=== PATIENT | female | born 1990 | race Caucasian/White ===

== ENCOUNTER 2017-09-15 13:13 | Emergency (ER) | payer BC ==
[2017-09-15 13:30] VITALS: BP 113/80
--- NOTE | 2017-09-15 15:00 | UC ---
Arslan Melton Alfonso, scribed for Zahida Hadley DO on 09/15/17 at 1405 . General HPI - HPI Summary HPI Summary: This patient is a 27 year old F presenting to [facility] with a chief complaint of abdominal pain, vomiting (a few times most days) and watery diarrhea (5 times each day) since 8 days ago. The patient rates the pain 8/10 in severity. Symptoms aggravated by changing position, eating and drinking more than small amounts. Symptoms alleviated by nothing. Patient reports fever (100.5), sharp shooting headache (from posterior neck radiating to frontal area), lightheadedness, vaginal spotting, and dysuria (at the end of urination to 30 minutes after). Patient denies blurred vision and confusion. 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 She had a recent stool sample at [facility] which was indeterminate for cyrptosporidium. - History of Current Complaint Chief Complaint: UCHeadache Stated Complaint: VOMIT,HEADACHE,PAINFUL URINATION Time Seen by Provider: 09/15/17 13:57 Hx Obtained From: Patient Hx Last Menstrual Period: 07/2017 Onset/Duration: Sudden Onset, Lasting Days - 8, Still Present Timing: Constant Onset Severity: Moderate Current Severity: Severe Pain Intensity: 8 - /10 Associated Signs & Symptoms: Positive: Abdominal Pain, Diarrhea, Dysuria, Decreased Oral Intake, Fever, Headache, Vomiting, Weakness, Other - fever, sharp shooting headache (from posterior neck radiating to frontal area), lightheadedness, vaginal spotting, and dysuria (at the end of urination to 30 minutes after). Patient denies blurred vision and confusion.. Negative: Back Pain, Confusion, Cough, Chest Pain, Syncope, SOB, Wheezing - Allergy/Home Medications Allergies/Adverse Reactions: Allergies Allergy/AdvReac Type Severity Reaction Status Date / Time Bacitracin [From Neosporin] Allergy Rash Verified 09/15/17 13:30 Neomycin [From Neosporin] Allergy Rash Verified 09/15/17 13:30 Polymyxin B [From Neosporin] Allergy Rash Verified 09/15/17 13:30 Home Medications: Home Medications Alprazolam 1 tab PO DAILY PRN 09/15/17 [History Confirmed 09/15/17] FLUoxetine CAP* [PROzac CAP*] 40 mg PO DAILY 09/15/17 [History Confirmed ] Levonorgestrel-Ethinyl Estradi [Camrese 0.15-0.03 &0.01 mg] 1 tab PO DAILY 09/15 [History Confirmed 09/15/17] PMH/Surg Hx/FS Hx/Imm Hx Previously Healthy: No - anxiety and depression Psychological History: Anxiety, Depression - Surgical History Surgical History: None - Family History Known Family History: Positive: Hypertension, Diabetes - Social History Occupation: Student Lives: With Family Alcohol Use: Weekly Substance Use Type: None Smoking Status (MU): Never Smoked Tobacco - Immunization History Most Recent Influenza Vaccination: 2017 Most Recent Tetanus Shot: unknown Review of Systems Constitutional: Fever Eyes: Other - Negative blurred vision Gastrointestinal: Vomiting, Diarrhea Genitourinary: Dysuria, Other - Vaginal spotting Neurological: Headache, Other - Lightheadedness; negative confusion All Other Systems Reviewed And Are Negative: Yes Physical Exam Triage Information Reviewed: Yes Appearance: No Pain Distress, Well-Nourished, Ill-Appearing - Moderate, Other: - Fatiuged Vital Signs: Initial Vital Signs Temp 97.8 F 09/15/17 13:22 Pulse 130 09/15/17 13:22 Resp 16 09/15/17 13:22 BP 113/80 09/15/17 13:22 Pulse Ox 99 09/15/17 13:22 Vital Signs Reviewed: Yes Eyes: Positive: Conjunctiva Clear. Negative: Discharge ENT: Positive: Pharynx normal, TMs normal. Negative: Tonsillar swelling, Tonsillar exudate, Trismus, Muffled voice, Hoarse voice Neck exam: Normal Neck: Positive: Supple Respiratory: Positive: Lungs clear, Normal breath sounds, No respiratory distress, No accessory muscle use Cardiovascular: Positive: No Murmur, Tachycardia Abdomen Description: Positive: Soft, CVA Tenderness (R), CVA Tenderness (L), McBurney's Point Tenderness, Other: - LUQ, RLQ, and umbilical tenderness with guarding. No rebound. 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 Negative: Distended Bowel Sounds: Positive: Hyperactive Musculoskeletal Exam: Normal Neurological: Positive: Alert, Fatigued, Other: - A&Ox3, CN II-XII INTACT, SENSORY MOTOR INTACT, REFLEXES INTACT, NO CEREBELLAR SIGNS, FACIAL SYMMETRY, NEGATIVE ROMBERG, NORMAL GAIT Psychological Exam: Normal Psychological: Positive: Age Appropriate Behavior Skin Exam: Normal Skin: Positive: Other - Warm, Dry, Pale Course/Dx - Course Course Of Treatment: Patient will be discharged with follow up from PCP. The patient is agreeable with this plan. Medications reviewed. Allergies reviewed. - Differential Dx - Multi-Symptom Provider Diagnoses: Acute abdominal pain, dehydration, vomiting, diarrhea, headache. Discharge - Discharge Plan Condition: Stable Disposition: TRANS HIGHER LVL OF CARE FAC Referrals: Ron Maria MD [Primary Care Provider] - The documentation as recorded by the Arslan moseley Alfonso accurately reflects the service I personally performed and the decisions made by , Zahida Hadley DO.
== END 2017-09-15 14:48 | disposition short-term general hospital (02) ==
LOC: UCEAST 13:13
DX: R10.84 Generalized abdominal pain (principal); E86.0 Dehydration; R11.10 Vomiting, unspecified; R19.7 Diarrhea, unspecified; R51 Headache; R30.0 Dysuria; N93.9 Abnormal uterine and vaginal bleeding, unspecified; Z32.02 Encounter for pregnancy test, result negative; F41.9 Anxiety disorder, unspecified; F32.9 Major depressive disorder, single episode, unspecified; Z88.3 Allergy status to other anti-infective agents
CPT/HCPCS: 81003; 84702; 99213; G0463

== ENCOUNTER 2017-09-15 15:07 | Inpatient (IN) | payer BC ==
[2017-09-15 15:56] LABS: Hematocrit 47 % (35-47); Hemoglobin 16.5 g/dl (12.0-16.0); Mean Corpuscular HGB Conc 36 g/dl (31-36); Mean Corpuscular Hemoglobin 32 pg (27-31); Mean Corpuscular Volume 90 fL (80-97); Mean Platelet Volume 7 um3 (7.4-10.4); Red Blood Count 5.18 10^6/ul (4.0-5.4); Red Cell Distribution Width 12 % (10.5-15)
[2017-09-15 16:30] LABS: ALT 148 U/L (7-52); AST 83 U/L (13-39); Alkaline Phosphatase 44 U/L (34-104); Amylase 129 U/L (29-103); BUN/Creatinine Ratio 9.9 (8-20); Blood Urea Nitrogen 8 mg/dL (6-24); CO2 Carbon Dioxide 26 mmol/L (22-32); Calcium 9.1 mg/dL (8.6-10.3); Chloride 101 mmol/L (101-111); Creatine Kinase 23 U/L (10-223); EGFR African American 110.8 (>60); EGFR Non-African American 86.2 (>60); Globulin 2.9 g/dL (2-4); Glucose 105 mg/dL (70-100); Lipase 353 U/L (11.0-82.0); Magnesium 1.9 mg/dL (1.9-2.7); Sodium 138 mmol/L (133-145); Total Protein 6.9 g/dL (6.4-8.9)
[2017-09-15 16:33] LABS: Anion Gap 11 mmol/L (2-11); Potassium 2.7 mmol/L (3.5-5.0)
[2017-09-15] MEDS ORDERED: Iohexol 300* (CONTRAST) 10 ML SDV IV ONE (16:34)
[2017-09-15] MEDS ORDERED: KCL 10 MEQ/50 ML IVPREMIX* 10 MEQ/50 ML BAG IV ONE (16:38)
--- NOTE | 2017-09-15 17:30 | RAD ---
INDICATION: Abdominal pain and fever COMPARISON: None TECHNIQUE: Axial source images were obtained from the hemidiaphragms to the symphysis pubis following administration of oral and intravenous contrast. 105 mL Omnipaque 300 was utilized. Coronal and sagittal reconstructed images were acquired. Lung bases: The lung bases are clear. Liver: The liver is enlarged with findings of hepatic steatosis. There are no masses. There is no ductal dilatation. Gallbladder: There are no calcified gallstones. There is no evidence of wall thickening or pericholecystic fluid. Spleen: The spleen is normal in size. There are no masses. Pancreas: There is no focal pancreatic mass or ductal dilatation. Adrenal glands: There is no evidence of adrenal mass. Kidneys: The kidneys are normal in size and position. There are prompt nephrograms and there is prompt excretion bilaterally. There are no renal parenchymal masses. There is no evidence of nephrolithiasis. Adenopathy: There is no evidence of adenopathy by size criteria. Overall, there are multiple mesenteric lymph nodes. The findings can be seen with mesenteric lymphadenitis Fluid collections: There are no free or localized fluid collections. Vessels:There are no significant atherosclerotic changes involving the aorta. There is no focal aneurysm. The iliac vessels are normal in caliber. The IVC appears normal. GI tract: There are no acute CT bowel findings. There is no obstruction. The stomach and small bowel appear normal. The lower GI tract is normal. The cecum, ileocecal valve, and terminal ileum appear normal. The appendix is visualized and appear normal. Pelvic organs: The uterus and adnexa appear normal Bladder: There are no bladder masses. Abdominal and pelvic soft tissues: The extraperitoneal abdominal and pelvic soft tissues appear normal.. Osseous structures: There are no acute osseous findings. There is degenerative disease about L1-L2 with mild straightening of the thoracolumbar junction. Other: None IMPRESSION: POSSIBLE MESENTERIC LYMPHADENITIS. HEPATIC STEATOSIS.
[2017-09-15] MEDS ORDERED: Morphine INJ* 4 MG/ML 1 ML CARPUJECT IV ONE (19:44)
[2017-09-15] MEDS ORDERED: Ondansetron INJ* 2 MG/ML VIAL IV ONE (19:45)
[2017-09-15] MEDS ORDERED: Ondansetron INJ* 2 MG/ML VIAL IV PRN (20:06)
[2017-09-15] MEDS ORDERED: Al Hydrox/Mg Hydrox/Simet LIQ* 30 ML UDC PO PRN (20:06)
[2017-09-15] MEDS ORDERED: Morphine INJ* 2 MG/ML 1 ML SYRINGE (TWO MG - NEW SYRINGE VERSION) IV PRN (20:06)
--- NOTE | 2017-09-15 20:06 | ED ---
Jessi Melton Nilda, scribed for Radha Sellers MD on 09/15/17 at 1745 . GI/ HPI - HPI Summary HPI Summary: This patient is a 27 year old F presenting for [facility] to [facility] accompanied by (Yusuf) with a chief complaint of N/V/D for the past 8 days. On 09/07/17 patient had diarrhea (watery, dark brown or clear liquid, every 20 mins) and vomiting. On 09/09/17 pt visited PCP who found that pt had a fever of 100.4F. Stool sample from PCP returned negative for Giardia and indeterminate for Crypto. On 09/12/17, pt vomited again. Yesterday, pt developed shooting pain up neck that radiated to her head behind right eye. Pt also states that she has RUQ pain, and that during 30 minutes after urination, pt develops vaginal pain. 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 The patient rates the headache 4/10 in severity. Symptoms aggravated by changing position, eating and drinking more than small amounts. Symptoms alleviated by nothing. Per Dr. Hadley in urgent care pt had temp 100.5, pulse 130 and pt was referred for further evaluation. - History of Current Complaint Chief Complaint: EDAbdPain Time Seen by Provider: 09/15/17 15:30 Stated Complaint: VOMIT,HEADACHE,PAINFUL URINATION Hx Obtained From: Patient, Medical Records - Dr. Hadley Hx Last Menstrual Period: 07/2017 Onset/Duration: Started Days Ago, Still Present Timing: Constant Severity: Moderate Current Severity: Severe Pain Intensity: 4 Location of Pain: RUQ Additional Location for Females: Other - vaginal Pain Characteristics: Cramping Associated Signs and Symptoms: Positive: Nausea, Vomiting, Diarrhea, Fever, Abdominal Pain, Other: - vaginal pain, headache behind her right eye Additional Signs & Symptoms: Positive: Other: - works with calves as a vet student Aggravating Factor(s): Nothing Alleviating Factor(s): Nothing - Allergy/Home Medications Allergies/Adverse Reactions: Allergies Allergy/AdvReac Type Severity Reaction Status Date / Time Bacitracin [From Neosporin] Allergy Rash Verified 09/15/17 15:12 Neomycin [From Neosporin] Allergy Rash Verified 09/15/17 15:12 Polymyxin B [From Neosporin] Allergy Rash Verified 09/15/17 15:12 Home Medications: Home Medications ALPRAZolam TAB* [Xanax TAB*] 0.25 mg PO DAILY PRN 09/15/17 [History Confirmed ] PMH/Surg Hx/FS Hx/Imm Hx Previously Healthy: Yes Endocrine/Hematology History: Denies: Hx Diabetes, Hx Thyroid Disease Cardiovascular History: Denies: Hx Hypertension Respiratory History: Denies: Hx Asthma, Hx Chronic Obstructive Pulmonary Disease (COPD) GI History: Denies: Hx Ulcer Sensory History: Denies: Hx Legally Blind EENT History: Denies: Hx Deafness - Surgical History Surgery Procedure, Year, and Place: none Infectious Disease History: No Infectious Disease History: Denies: Hx Hepatitis, Hx Human Immunodeficiency Virus (HIV), Traveled Outside the [place] in Last 30 Days - Family History Known Family History: Positive: Hypertension, Diabetes - Social History Occupation: Student - vet student Lives: With Family Alcohol Use: Weekly Substance Use Type: Reports: None Smoking Status (MU): Never Smoked Tobacco Review of Systems Positive: Fever Eyes: Negative Cardiovascular: Negative Respiratory: Negative Positive: Abdominal Pain - RUQ pain, Vomiting, Diarrhea, Nausea Positive: pain Musculoskeletal: Negative Skin: Negative Positive: Headache Psychological: Normal All Other Systems Reviewed And Are Negative: Yes Physical Exam Triage Information Reviewed: Yes Vital Signs On Initial Exam: Initial Vitals Temp Pulse Resp BP Pulse Ox 97.5 F 103 16 115/83 97 09/15/17 15:12 09/15/17 15:12 09/15/17 15:12 09/15/17 15:12 09/15/17 15:12 Vital Signs Reviewed: Yes Appearance: Positive: Well-Nourished, Ill-Appearing, Pain Distress Skin: Positive: Warm, Skin Color Reflects Adequate Perfusion Head/Face: Positive: Normal Head/Face Inspection Eyes: Positive: EOMI, PASCALE, Conjunctiva Clear ENT: Positive: Normal ENT inspection, Pharynx normal Neck: Positive: Supple, Nontender, No Lymphadenopathy Respiratory/Lung Sounds: Positive: Clear to Auscultation, Breath Sounds Present , Other - no acute respiratory distress Cardiovascular: Positive: RRR, Other - normal pulses, brisk capillary refill, S1 , S2. Negative: Murmur Abdomen Description: Positive: No Organomegaly, Soft, Other: - RUQ tenderness. Negative: Bruit, CVA Tenderness (R), CVA Tenderness (L), Distended, Guarding, Hernia @, Hepatomegaly, McBurney's Point Tenderness, Peritoneal Signs, Pulsatile Mass, Splenomegaly Bowel Sounds: Positive: Present Musculoskeletal: Positive: Strength/ROM Intact Neurological: Positive: Sensory/Motor Intact, Alert, Oriented to Person Place, Time, Facial Symmetry, Speech Normal, Other - normal muscle tone Psychiatric: Positive: Normal - [place] Coma Scale Best Eye Response: 4 - Spontaneous Best Motor Response: 6 - Obeys Commands Best Verbal Response: 5 - Oriented Coma Scale Total: 15 Diagnostics - Vital Signs Vital Signs Temp Pulse Resp BP Pulse Ox 09/15/17 15:12 97.5 F 103 16 115/83 97 - Laboratory Lab Results: Lab Results 09/15/17 09/15/17 Range/Units 14:30 14:30 WBC 9.0 (3.5-10.8) 10^3/ul RBC 5.18 (4.0-5.4) 10^6/ul Hgb 16.5 H (12.0-16.0) g/dl Hct 47 (35-47) % MCV 90 (80-97) fL MCH 32 H (27-31) pg MCHC 36 (31-36) g/dl RDW 12 (10.5-15) % Plt Count 214 (150-450) 10^3/ul MPV 7 L (7.4-10.4) um3 Neut % (Auto) 52.3 (38-83) % Lymph % (Auto) 33.9 (25-47) % Grimes % (Auto) 10.8 H (1-9) % Eos % (Auto) 2.4 (0-6) % Baso % (Auto) 0.6 (0-2) % Absolute Neuts (auto) 4.7 (1.5-7.7) 10^3/ul Absolute Lymphs (auto) 3.0 (1.0-4.8) 10^3/ul Absolute Monos (auto) 1.0 H (0-0.8) 10^3/ul Absolute Eos (auto) 0.2 (0-0.6) 10^3/ul Absolute Basos (auto) 0.1 (0-0.2) 10^3/ul Absolute Nucleated RBC 0 10^3/ul Nucleated RBC % 0 INR (Anticoag Therapy) 0.96 (0.89-1.11) Result Diagrams: 09/15/17 14:30 09/15/17 16:43 Lab Statement: Any lab studies that have been ordered have been reviewed, and results considered in the medical decision making process. - CT Abd/Pel CT Interpretation Completed By: Radiologist - CT Abd/Pel, per radiologist, reveals, possible mesenteric lymphadenitis. Hepatic steatosis. ED physician has reviewed this report and agrees. Brain CT Interpretation Completed By: Radiologist - Negative exam. ED Physician reviewed this report and agrees. Re-Evaluation - Re-Evaluation First Eval Re-Evaluation Time: 17:03 Comment: Pt going for CT Abd/Pel. She reports being prescribed [id number] mg. Second Eval Re-Evaluation Time: 18:20 Comment: Reviewed labs. Pt agreeable with plan for admission. GIGU Course/Dx - Course Assessment/Plan: This patient is a 27 year old F presenting from [facility] to [facility] with a chief complaint of N/V/D for the past 8 days. 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 Medications and allergies reviewed this visit. Pending labs, CT abd/pel. ED Physician is aware of K+ 2.7 at 1635. Blood work is without significant abnormalities except amylase (129) and lipase (353) . CT Abd/Pel, per radiologist, reveals, possible mesenteric lymphadenitis. Hepatic steatosis. CT Brain, per radiologist, reveals negative examination. ED physician has reviewed these reports and agrees. [address] Lowe ( hospitalist) agrees to admit. Pt received IV potassium and IV fluids while in the ED. Pt is stable and will be admitted with Dx of Mesenteric adenitis, Cryptosporidium diarrhea, and pancreatitis. - Diagnoses Differential Diagnoses - Female: Appendicitis, Cholecystitis, Dehydration, Enterocolitis, Gall Bladder Disease, Gastroenteritis (Viral), Gastroenteritis ( Bacterial), Hepatitis, Pancreatitis, Other - infectious diarrhea Provider Diagnoses: Diarrhea due to cryptosporidium, Mesenteric adenitis, Pancreatitis, Hypokalemia - Physician Notifications Discussed Care Of Patient With: Ana Lowe - Hospitalist Time Discussed With Above Provider: 18:22 Instructed by Provider To: Admit As Inpatient Discharge - Discharge Plan Condition: Stable Disposition: ADMITTED TO [facility] documentation as recorded by the Jessi moseley Nilda accurately reflects the service I personally performed and the decisions made by me, Radha Sellers MD.
--- NOTE | 2017-09-15 20:36 | RAD ---
INDICATION: Headaches COMPARISON: None TECHNIQUE: Noncontrast axial source images were acquired from the skull base to the vertex. FINDINGS: Ventricles/sulci: The ventricles and cisterns are normal in size and configuration for age. Brain parenchyma: There is no focal parenchymal finding, evidence of intracranial mass, or intracranial mass effect. Intracranial hemorrhage:None. Extra-axial spaces: There are no abnormal extra axial fluid collections or evidence of extra-axial mass. Calvarium: There is no calvarial fracture or other calvarial abnormality. Scalp: There is no evidence of scalp or extracalvarial soft tissue abnormality. Paranasal sinuses/mastoid: The paranasal sinuses and mastoid air cells are clear. Other: None. IMPRESSION: NEGATIVE EXAMINATION
[2017-09-15] MEDS ORDERED: ALPRAZolam TAB* 0.25 MG PO PRN (21:27)
[2017-09-15] MEDS: NS 0.9% w/ 20 Meq KCL 1000 ML* 1,000 ML IV SCH (22:27)
[2017-09-15] MEDS: Acetaminophen TAB* 325 MG PO PRN (22:42)
[2017-09-15] MEDS: Ketorolac INJ* 15 MG/ML 1 ML VIAL IV PUSH PRN (22:43)
[2017-09-15] MEDS: NITAZOXANIDE 500 MG PO SCH (23:44)
[2017-09-16] MEDS: Zolpidem TAB* 5 MG PO PRN ×2 (00:18→23:26)
--- NOTE | 2017-09-16 02:52 | HP ---
CC: Dr. Ron Maria * HISTORY AND PHYSICAL: DATE OF ADMISSION: 09/15/17 TIME OF EVALUATION: 1899. PRIMARY CARE PHYSICIAN: Dr. Ron Maria. CHIEF COMPLAINT: Vomiting, diarrhea, and abdominal pain. 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 She states on 09/07/17 , she began having vomiting and profuse watery diarrhea. She followed up with her primary care physician on 09/09/17, who took a stool study. She was febrile at that time and did not want to treat initially as there was concern for cryptosporidium with working with the calves. She states that the frequency and the urgency were less; however, the volume still remains large amounts of watery clear liquid diarrhea. She states she has had decreased p.o. intake and concerned for large volume of output, she called her primary care physician on 09/12/17, who ordered the prescription to start for treatment. Unfortunately, it had to be a special order and it did not come in today. She was vomiting yesterday and today and just got the prescription but was unable to take it due to the vomiting and she went to Urgent Care, who then sent her here to the emergency room. She states also yesterday she developed right- sided headache with pain behind her eyes, worse with movement. She also has developed lower abdominal pain with and after urination. She complains of diffuse abdominal pain. She has had fevers, chills, and diaphoresis. No chest pain. No shortness of breath. No URI symptoms. Otherwise, remaining review of systems is negative. In the emergency room, the patient had labs and imaging. She was given 4 mg of morphine, 4 mg of Zofran, and potassium chloride, and was referred to the hospitalist service for further evaluation. PAST MEDICAL HISTORY: 1. History of migraines. 2. Anxiety. 3. Depression. MEDICATIONS: 1. control pills, although the patient states she has not been taking them routinely. 2. Prozac 40 mg p.o. daily. 3. Xanax 0.25 mg daily as needed. FAMILY HISTORY: Father at age 69 from diabetes and hypertension complications. Her mother is alive and healthy. SOCIAL HISTORY: As mentioned, she is a veterinary student. She lives with her . No smoking. She drinks alcohol about once a week. No illicit drug use. No kids. No recent travel. REVIEW OF SYSTEMS: A 14-point review of systems are mentioned in the HPI, otherwise negative. PHYSICAL EXAMINATION GENERAL: In no acute distress, resting comfortably with her at the bedside. VITAL SIGNS: Temp 97.5, pulse rate 101, respiratory rate 16, oxygen saturation 98% on room air, blood pressure 120/77. HEENT: Head normocephalic. Pupils are equal and reactive. Anicteric. Oropharynx: Mucous membranes moist. No erythema or exudate. NECK: Supple. No nuchal rigidity. No adenopathy. RESPIRATORY: Clear to auscultation. No wheezes, rhonchi, or rales. CARDIAC: Regular rate and rhythm. No murmurs, rubs, or gallops. ABDOMEN: Hyperactive bowel sounds. Soft, nondistended, diffusely tender. More exquisite tenderness in the right upper quadrant. EXTREMITIES: No clubbing, cyanosis, or edema. +2 DPs. NEUROLOGIC: Alert and oriented x3. No focal neurological deficits. DIAGNOSTIC STUDIES/LAB DATA: White count 9, hemoglobin 16.5, hematocrit 47, platelets 214. INR is 0.96. Sodium 138; potassium 2.7, repleted to 3.1; chloride 101; bicarb 26; BUN 8; creatinine 0.8. AST 83, ALT 148. CRP 43. Amylase 129, lipase . Beta HCG is less than 0.6. Radiographic data: Possible mesenteric lymphadenitis, hepatic steatosis. ASSESSMENT AND PLAN: This is a 26-year-old female, veterinary student, who was working with calves, developed 2 weeks later profuse watery diarrhea. Of note, her stool studies from 09/09/17 in the primary care physician's office shows indeterminate crypto antigen. 1. Abdominal pain, watery diarrhea, and vomiting. Assessment: The patient most likely has cryptosporidium while handling the calves as a veterinary student, which she is considered immunocompetent host. She states she can be tested for HIV, although she was recently tested as well as the . She is also complaining of this right-sided headache, pain. She does have a history of migraine. It could be atypical migraine. It could be related to the cryptosporidium as that is one of the manifestations. Plan: We will check a head CT. Continue supportive care with IV fluids, morphine, Toradol. Once her head CT comes back negative, we will start her on the nitazoxanide tablets 500 mg p.o. b.i.d. 2. Elevated liver function tests and lipase and amylase. Assessment: The patient with most likely mesenteric lymphadenitis. I suspect this is secondary to her presumed cryptosporidium. She does have right upper quadrant tenderness. Plan: We will continue hydration. Repeat her labs. Check liver studies and an ultrasound and hepatitis panel. CHRONIC MEDICAL PROBLEMS: We will resume her fluoxetine and Xanax as needed. FEN: As mentioned, regular diet with IV fluids. DVT prophylaxis: The patient scores low risk. We will put her on SCDs and encourage ambulation as well when off SCDs. Code status: Full code. Healthcare proxy is her . PATIENT TIME: Sixty minutes was spent doing the history and physical, half the time was spent in direct patient contact. [id number]/CPS #: [id number] MTDD
[2017-09-16 06:18] LABS: Hematocrit 35 % (35-47); Hemoglobin 12.3 g/dl (12.0-16.0); Mean Corpuscular HGB Conc 35 g/dl (31-36); Mean Corpuscular Hemoglobin 32 pg (27-31); Mean Corpuscular Volume 90 fL (80-97); Mean Platelet Volume 7 um3 (7.4-10.4); Red Blood Count 3.85 10^6/ul (4.0-5.4); Red Cell Distribution Width 12 % (10.5-15); White Blood Count 5.9 10^3/ul (3.5-10.8)
[2017-09-16 06:39] LABS: Albumin 2.7 g/dL (3.2-5.2); BUN/Creatinine Ratio 9.1 (8-20); Calcium 7.5 mg/dL (8.6-10.3); EGFR African American 173.2 (>60); EGFR Non-African American 134.7 (>60); Globulin 1.9 g/dL (2-4); Total Bilirubin 0.8 mg/dL (0.2-1.0); Total Protein 4.6 g/dL (6.4-8.9)
[2017-09-16] MEDS: NS 0.9% w/ 20 Meq KCL 1000 ML* 1,000 ML IV SCH ×3 (07:17→23:58)
--- NOTE | 2017-09-16 07:18 | RAD ---
INDICATION: Right upper quadrant pain. COMPARISON: Comparison is made with a prior CT of the abdomen and pelvis from September 15, 2017. TECHNIQUE: Multiple real-time images of the right upper quadrant were obtained. FINDINGS: The gallbladder appear normal. No gallbladder wall thickening or pericholecystic fluid is present. The common bile duct is upper limits of normal in diameter. No intrahepatic ductal distention is seen. The common bile duct measured 0.6 cm in diameter. The liver is normal in size and increased in echogenicity correlating with fatty infiltration on the prior CT study. No focal hepatic abnormality is seen. The pancreas is is partially obscured by overlying bowel gas. The right kidney is normal in size without evidence for hydronephrosis. IMPRESSION: 1. NORMAL EXAMINATION OF THE GALLBLADDER. 2. HEPATIC STEATOSIS. 3. COMMON BILE DUCT UPPER LIMITS OF NORMAL.
[2017-09-16 08:53] LABS: Urine Bacteria Absent (Absent); Urine Bilirubin Negative (Negative); Urine Glucose Negative (Negative); Urine Nitrite Negative (Negative)
[2017-09-16] MEDS: Acetaminophen TAB* 325 MG PO PRN ×2 (09:20→19:42)
[2017-09-16] MEDS: FLUoxetine CAP* 20 MG PO SCH (09:20)
[2017-09-16] MEDS: Ketorolac INJ* 15 MG/ML 1 ML VIAL IV PUSH PRN ×2 (09:21→19:42)
[2017-09-16] MEDS: NITAZOXANIDE 500 MG PO SCH ×2 (09:21→21:16)
--- NOTE | 2017-09-16 17:47 | PN ---
Subjective Date of Service: 09/16/17 Interval History: diarrhea continues and later increased in frequency. Tolerated diet though with some gassiness/bloating. cryptosporidium positive. Feeling better with IVF. Objective Active Medications: Acetaminophen (Tylenol Tab*) 650 mg PO Q4H PRN PRN Reason: FEVER/PAIN Last Admin: 09/16/17 09:20 Dose: 650 mg Al Hydrox/Mg Hydrox/Simethicone (Maalox Plus*) 30 ml PO Q6H PRN PRN Reason: INDIGESTION Alprazolam (Xanax Tab*) 0.25 mg PO Q8H PRN PRN Reason: ANXIETY Fluoxetine HCl (Prozac Cap*) 40 mg PO DAILY [facility] Last Admin: 09/16/17 09:20 Dose: 40 mg Potassium Chloride/Sodium Chloride (Ns 0.9% W/ 20 Meq Kcl 1000 Ml*) 1,000 mls @ 125 mls/hr IV PER RATE [facility] Last Admin: 09/16/17 15:44 Dose: 125 mls/hr Ketorolac Tromethamine (Toradol Inj*) 15 mg IV PUSH Q6H PRN PRN Reason: PAIN Last Admin: 09/16/17 09:21 Dose: 15 mg Morphine Sulfate (Morphine Inj (Syringe)*) 2 mg IV Q4H PRN PRN Reason: PAIN Pto: Nitazoxanide (500mg Tablet) 1 dose PO BID [facility] Last Admin: 09/16/17 09:21 Dose: 1 dose Ondansetron HCl (Zofran Inj*) 4 mg IV Q4H PRN PRN Reason: NAUSEA/VOMITING Last Admin: 09/16/17 13:56 Dose: 4 mg Zolpidem Tartrate (Ambien Tab*) 5 mg PO BEDTIME PRN PRN Reason: SLEEP Last Admin: 09/16/17 00:18 Dose: 5 mg Vital Signs 09/15/17 09/15/17 09/15/17 20:10 21:44 22:26 Temperature 97.9 F Pulse Rate 106 Respiratory 16 20 16 Rate Blood Pressure 121/73 (mmHg) O2 Sat by Pulse 93 Oximetry 09/16/17 09/16/17 09/16/17 00:22 04:33 04:36 Temperature 97.9 F 97.2 F Pulse Rate 93 84 Respiratory 20 20 20 Rate Blood Pressure 106/60 107/60 (mmHg) O2 Sat by Pulse 99 98 98 Oximetry 09/16/17 09/16/17 09/16/17 04:38 07:24 08:07 Temperature 98.2 F Pulse Rate 102 84 Respiratory 20 20 16 Rate Blood Pressure 95/54 104/67 (mmHg) O2 Sat by Pulse 98 98 Oximetry 09/16/17 16:05 Temperature 98.2 F Pulse Rate 80 Respiratory 16 Rate Blood Pressure 114/67 (mmHg) O2 Sat by Pulse 98 Oximetry Oxygen Devices in Use Now: None Appearance: NAD Eyes: No Scleral Icterus, PERRLA Ears/Nose/Mouth/Throat: NL Teeth, Lips, Gums, Clear Oropharnyx Neck: NL Appearance and Movements; NL JVP, Trachea Midline Respiratory: Symmetrical Chest Expansion and Respiratory Effort Cardiovascular: No Edema Abdominal: NL Sounds; No Tenderness; No Distention, No Hepatosplenomegaly Extremities: No Edema, No Clubbing, Cyanosis Skin: No Rash or Ulcers, No Nodules or Sclerosis Neurological: Alert and Oriented x 3, NL Muscle Strength and Tone Result Diagrams: 09/16/17 05:03 09/16/17 05:03 Additional Lab and Data: Laboratory Results - last 24 hr 09/15/17 09/16/17 09/16/17 14:30 05:03 05:03 WBC 5.9 RBC 3.85 L Hgb 12.3 Hct 35 MCV 90 MCH 32 H MCHC 35 RDW 12 Plt Count 167 MPV 7 L Neut % (Auto) 34.2 L Lymph % (Auto) 48.8 H [place] % (Auto) 13.4 H Eos % (Auto) 3.0 Baso % (Auto) 0.6 Absolute Neuts (auto) 2.0 Absolute Lymphs (auto) 2.9 Absolute Monos (auto) 0.8 Absolute Eos (auto) 0.2 Absolute Basos (auto) 0 Absolute Nucleated RBC 0.01 Nucleated RBC % 0.2 Sodium 139 Potassium 3.0 L Chloride 109 Carbon Dioxide 25 Anion Gap 5 BUN 5 L Creatinine 0.55 Est GFR ( Amer) 173.2 Est GFR (Non-Af Amer) 134.7 BUN/Creatinine Ratio 9.1 Glucose 85 Calcium 7.5 L Total Bilirubin 0.80 AST 54 H ALT 98 H Alkaline Phosphatase 28 L Total Protein 4.6 L Albumin 2.7 L Globulin 1.9 L Albumin/Globulin Ratio 1.4 Lipase 222 H Urine Color Urine Appearance Urine pH Ur Specific [place] Urine Protein Urine Ketones Urine Blood Urine Nitrate Urine Bilirubin Urine Urobilinogen Ur Leukocyte Esterase Urine WBC (Auto) Urine RBC (Auto) Ur Squamous Epith Cells Urine Bacteria Hyaline Casts Urine Glucose Hepatitis A IgM Ab Nonreactive Hep Bs Antigen Nonreactive Hep B Core IgM Ab Nonreactive Hepatitis C Antibody Nonreactive HIV 1&2 Antibody Nonreactive 09/16/17 08:35 WBC RBC Hgb Hct MCV MCH MCHC RDW Plt Count MPV Neut % (Auto) Lymph % (Auto) [place] % (Auto) Eos % (Auto) Baso % (Auto) Absolute Neuts (auto) Absolute Lymphs (auto) Absolute Monos (auto) Absolute Eos (auto) Absolute Basos (auto) Absolute Nucleated RBC Nucleated RBC % Sodium Potassium Chloride Carbon Dioxide Anion Gap BUN Creatinine Est GFR ( Amer) Est GFR (Non-Af Amer) BUN/Creatinine Ratio Glucose Calcium Total Bilirubin AST ALT Alkaline Phosphatase Total Protein Albumin Globulin Albumin/Globulin Ratio Lipase Urine Color Bell Urine Appearance Clear Urine pH 6.0 Ur Specific [place] 1.026 Urine Protein Negative Urine Ketones 1+ H Urine Blood 2+ H Urine Nitrate Negative Urine Bilirubin Negative Urine Urobilinogen Negative Ur Leukocyte Esterase Negative Urine WBC (Auto) 1+(6-10/hpf) H Urine RBC (Auto) Trace(0-2/hpf) Ur Squamous Epith Cells Present H Urine Bacteria Absent Hyaline Casts Present H Urine Glucose Negative Hepatitis A IgM Ab Hep Bs Antigen Hep B Core IgM Ab Hepatitis C Antibody HIV 1&2 Antibody Microbiology and Other Data: Microbiology 09/15/17 16:43 Blood Venous Aerobic Blood Culture - Preliminary No Growth Day 1 09/15/17 16:43 Blood Venous Anaerobic Blood Culture - Preliminary No Growth Day 1 09/15/17 16:23 Blood Venous Aerobic Blood Culture - Preliminary No Growth Day 1 09/15/17 16:23 Blood Venous Anaerobic Blood Culture - Preliminary No Growth Day 1 09/15/17 21:22 Stool Cryptosporidium/Giardia - Final Positive Cryptosporidium Negative Giardia 09/15/17 21:22 Stool Stool Gross Appearance - Final 09/15/17 21:22 Stool Stool Gross Appearance - Final 09/15/17 21:22 Stool C. 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 on nitazoxanide. - Patient Problems (1) Diarrhea due to cryptosporidium Current Visit: Yes Status: Acute Code(s): A07.2 - CRYPTOSPORIDIOSIS SNOMED Code(s): 79310547 Comment: Continue nitazoxanide IVF monitor BMs Cdiff negative giardia negative f/u rest of stool cultures. (2) Hypokalemia Current Visit: Yes Status: Acute Code(s): E87.6 - HYPOKALEMIA SNOMED Code( s): 23725397 Comment: replete prn Status and Disposition: medicine. inpatient. likely d/c 09/17 vs 09/18 Attending: Johnathan Vanegas
[2017-09-17 05:30] LABS: BUN/Creatinine Ratio 6.7 (8-20); Calcium 7.8 mg/dL (8.6-10.3); EGFR African American 218.3 (>60); EGFR Non-African American 169.8 (>60); Potassium 3.3 mmol/L (3.5-5.0)
[2017-09-17] MEDS: NITAZOXANIDE 500 MG PO SCH (08:12)
[2017-09-17] MEDS: FLUoxetine CAP* 20 MG PO SCH (08:12)
[2017-09-17] MEDS: Potassium Chlor TAB* 20 MEQ TAB.ER PO SCH ×2 (08:12→10:19)
[2017-09-17] MEDS: NS 0.9% w/ 20 Meq KCL 1000 ML* 1,000 ML IV SCH (08:13)
[2017-09-17] MEDS: Acetaminophen TAB* 325 MG PO PRN (09:01)
[2017-09-17] MEDS: Ketorolac INJ* 15 MG/ML 1 ML VIAL IV PUSH PRN (09:01)
[2017-09-17 09:11] VITALS: BP 121/77
--- NOTE | 2017-09-17 13:15 | DS ---
DISCHARGE SUMMARY: DATE OF ADMISSION: 09/15/17 DATE OF DISCHARGE: 09/17/17 ADMITTING PROVIDER: Ella Velasco MD ATTENDING PHYSICIAN: Johnathan Vanegas MD PRIMARY CARE PHYSICIAN: Ron Maria MD CHIEF COMPLAINT: Vomiting, diarrhea, abdominal pain. PRINCIPAL DIAGNOSES: Cryptosporidium with associated diarrhea; headaches. 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 She also had episode of nausea, vomiting on that date. She followed up with nurse at her PCP's office and stool study was obtained. She had a fever. She then had decreased p.o. intake as she was concerned that every time she ate or drink, the diarrheal volume would increase, so she called her primary care doctor again on September 12 and a prescription was sent in for the nitazoxanide; however, there were delays and actually getting this medication filled seeing as it was a special order and did not arrive until the day of admission. She vomited the day before admission and the day of admission and was unable to take the medication. She developed a right-sided headache since September 14 the day prior to admission , which was not resolved with 600 mg ibuprofen at home. She attested to some lower abdominal pain, the later was attested more on the upper band across the abdomen. She had fevers, chills, and diaphoresis. In the emergency room, she was given Zofran, potassium was repleted and she was admitted for workup of her watery diarrhea, testing of which ultimately revealed cryptosporidium as determined by enzyme immunoassay antigen testing. Giardia was negative. C. diff was negative. Stool lactoferrin was positive. Shiga 1 and 2 are pending. Blood cultures were negative x1 day. She was afebrile here in the hospital. No leukocytosis. Potassium was 2.7 on admission, improved to 3.3 on day of discharge with additional 8 mEq given on the day of discharge. She will follow up with Dr. Maria or his nurse practitioners within 5 days of discharge. She has two more doses of the nitazoxanide to complete. She received IV fluids while in the hospital and this occurs to maintain good hydration and p.o. intake. She was given prescription for Fioricet in addition to over-the- counter Tylenol and Advil for her headaches. She had a CT scan, which was negative. DISCHARGE MEDICATIONS: Include: 1. Tylenol 650 mg p.o. q.4 hours p.r.n. 2. Levonorgestrel and ethinyl estradiol one tab p.o. daily. 3. Nitazoxanide 500 mg p.o. b.i.d. (two more tabs). 4. Prozac 40 mg p.o. daily. 5. Fioricet one tab p.o. q.6 hours p.r.n. for headache. 6. Xanax 0.25 mg p.o. daily p.r.n. for anxiety. DISCHARGE DIET: No restrictions. ACTIVITY LEVEL: No restrictions. FOLLOWUP: Follow up with Dr. Maria within 3 to 5 days of discharge. The patient may have continued diarrhea for several days if not weeks. TIME SPENT: Time spent on discharge was 35 minutes. [id number]/[facility] #: [id number] UMESH
== END 2017-09-17 11:46 | disposition home or self-care (01) | DRG 248 ==
LOC: ED 15:07 → MED 20:06 → MEDTELE 21:58 → OBSVTOIN 22:46 → INTOOBSV 22:46 → OBSVTOIN 09-16 22:46
PROVIDERS: ADMIT Pediatrics; ATTEND Internal Medicine
DX: A07.2 Cryptosporidiosis (principal); E87.6 Hypokalemia; R19.7 Diarrhea, unspecified; G44.89 Other headache syndrome; F41.8 Other specified anxiety disorders; Z79.3 Long term (current) use of hormonal contraceptives; Z79.899 Other long term (current) drug therapy; Z83.3 Family history of diabetes mellitus; Z82.49 Family history of ischemic heart disease and other diseases of the circulatory system
CPT/HCPCS: 36415; 70450; 74177; 76705; 80048; 80053; 80074; 81003; 81015; 82150; 82272; 82550; 83605; 83630; 83690; 83735; 84132; 84702; 85025; 85610; 86140; 86703; 87040; 87045; 87046; 87077; 87177; 87209; 87328; 87329; 87493; 87899; 99213; A9270-GY; G0463; J1885; J2270; J2405; J3480; Q9967